=== PATIENT | male | born 1990 | race Caucasian/White ===

== ENCOUNTER 2020-11-26 08:47 | Emergency (ER) | payer SELFPAY ==
[~2020-11-26] VITALS: Ht 177.8 cm; Wt 86.2 kg
--- NOTE | 2020-11-26 09:00 | NUR ---
Pt was triaged and placed back in ER waiting room as there are no ER beds available. Mother with pt.
--- NOTE | 2020-11-26 10:20 | NUR ---
Attempted to bring pt to hallway 1 for MSE, pt was not found in ER waiting room or outside ER.
== END 2020-11-26 10:26 | disposition left against medical advice (07) ==
LOC: ER 08:47
DX: Z75.3 Unavailability and inaccessibility of health-care facilities (principal)